=== PATIENT | male | born 1990 | race Caucasian/White ===

== ENCOUNTER 2023-01-20 12:10 | Outpatient (REF) | payer OTHER, SELFPAY ==
--- NOTE | ~2023-01-20 | XR_ITS ---
EXAMINATION: XR ABDOMEN KUB CLINICAL INDICATION: Constipation. COMPARISON: None available. TECHNIQUE: AP view of the abdomen. FINDINGS: Nonobstructive bowel gas pattern. Large amount of stool in the rectum, rectal vault measures approximately 7 cm in diameter. The included lung bases are clear. No acute osseous abnormalities. XR/XR KUB IMPRESSION: 1. Nonobstructive bowel gas pattern. 2. Large amount of stool in the rectum.
== END 2023-01-20 12:11 | disposition home or self-care (01) ==
LOC: HO.XRAY 12:10
DX: R10.9 Unspecified abdominal pain (principal); K59.00 Constipation, unspecified; R63.8 Other symptoms and signs concerning food and fluid intake
CPT/HCPCS: 74018

== ENCOUNTER 2023-02-15 08:22 | Emergency (ER) | payer OTHER, SELFPAY ==
[2023-02-15] VITALS (7 sets, daily range): BP systolic 127–149; BP diastolic 72–96; PULSE 86–200; RESP 14–22; TEMP 36.4–37; O2SAT 99–100; BMI 23.7
--- NOTE | 2023-02-15 08:44 | ED.CHESTPAIN ---
HPI - Chest Pain General Chief Complaint: Chest Pain Stated Complaint: CP PER EMS Time Seen by Provider: 02/15/23 08:27 Source: patient and EMS Mode of arrival: EMS Limitations: no limitations History of Present Illness HPI narrative: Dizziness, anxiety, high heart rate. patient has had prior alcohol withdrawal. Patient has had alcohol withdrawal in the past. Patients last drink was yesterday at 7pm. Patient was not offered a program in the past. Symptoms started while driving. Patient has had panic attacks in the past. Patient denies knowing what he is axious about. Onset (ago): minute(s) Timing of current episode: constant Prior episodes: Yes Onset: other (while driving) Related Data Previous Rx's Medication Instructions Recorded polyethylene glycol 3350 17 gram 17 g PO DAILY 7 days #7 ea 01/20/23 oral powder packet (Miralax) atenolol 50 mg tablet 50 mg PO DAILY #30 tabs 02/15/23 Allergies Allergy/AdvReac Type Severity Reaction Status Date / Time No Known Allergies Allergy Verified 01/20/23 10:53 Review of Systems Review of Systems: Yes all other systems are reviewed and are negative Constitutional: Comments: anxiety, dizziness, fast heart rate Neurologic: Denies Sensory deficit (Neuro) [facility] Past Medical History Medical History No pertinent past medical history Surgical History No pertinent past surgical history Social History Social History Household Members: Family Housing: Condominium Alcohol intake: current Alcohol intake frequency: a few times a week Alcohol type: beer Patient Tobacco Use Status: Never used Tobacco Smoked in Last 30 Days: No Use of substances other than those prescribed or required for medical reasons: Yes Substance Use Type: Marijuana Substance Use Frequency: Occasionally Advance Directives: No Advance Directives Information Provided: No Physical Exam Vital Signs: Vital Signs: Last Vital Signs Temp 98.1 F 02/15/23 11:51 Pulse 91 02/15/23 12:10 Resp 16 02/15/23 12:10 BP 127/74 02/15/23 12:10 Pulse Ox 100 02/15/23 12:10 O2 Del Method Room Air 02/15/23 12:10 BMI result Body Mass Index 23.7 Const: Other: anxious, shakey Nutritional Appearance: average body habitus Orientation/consciousness: oriented to person and patient oriented x3 Limitations: no limitations HEENT: Head: Yes normal to inspection Ears: external ears normal General nose exam: Normal external nose present Mouth: Normal oral and palatal mucosa present and oropharynx normal Throat: Yes posterior oropharynx normal Eyes: General: appearance normal, both eyes and all related structures Neck: Other: supple Neck: Yes normal visual inspection Chest: Chest palpation & inspection: normal inspection of the chest Resp: Auscultation: clear to auscultation bilaterally Cardio: Jugular venous distension: no JVD Rate: regular rate Rhythm: regular rhythm Heart sounds: S1 normal heart sound present and S2 normal heart sound present GI: Inspection: Yes normal to inspection Palpation (GI): Soft to palpation, nontender and No hepatosplenomegaly present Auscultation: normal bowel sounds : General: Yes no CVA tenderness Back/Spine/Pelvis: Back: no CVA tenderness Skin: General skin exam: no rashes or lesions noted Neuro: General: oriented to person and patient oriented x3 Cranial nerves: Yes CN's II-XII intact bilaterally Motor exam (neuro): 5/5 motor strength present throughout Sensory Exam: No Sensory deficit (Neuro) Extrem: General: Yes normal to inspection Psych: Appearance: grossly normal Course Reevaluation(s) Reevaluation #1: patient with an episode of SVT up to 225, then down to 180, gave adenosine which gave him a pause and then reset him to 120. betablocker given. Talked with Dr. Diaz who thinks reentrant tachycardia Time: 12:35 Reevaluation #2: I spent 40 minutes of critical care, with interventions, assessments, speaking to patient, consultants, and family. Time: 12:35 Medications Administered Discontinued Medications Generic Name Dose Route Start Last Admin Trade Name Freq PRN Reason Stop Dose Admin Adenosine 6 mg 02/15/23 11:37 02/15/23 10:55 Adenosine 6 Mg/2 Ml Vial IVPUSH 02/15/23 11:38 6 mg STAT STA Administration Atenolol 25 mg 02/15/23 11:38 02/15/23 12:08 Atenolol 25 Mg Tablet PO 02/15/23 11:39 25 mg ONCE ONE Administration Protocol Sodium Chloride 1,000 mls @ 999 mls/hr 02/15/23 09:00 02/15/23 12:14 Ns IVCONT 02/15/23 11:00 Infused .Q1H1M FRANCK Infusion Metoprolol Tartrate 5 mg 02/15/23 10:57 02/15/23 11:09 Metoprolol Tartrate 5 Mg/5 Ml Vial IVPUSH 02/15/23 10:58 5 mg ONCE ONE Administration Phenobarbital Sodium 65 mg 02/15/23 08:50 02/15/23 09:15 Phenobarbital Sodium 65 Mg/Ml Vial IVPUSH 02/15/23 08:51 65 mg ONCE ONE Administration Medical Decision Making Differential Diagnosis Differential Diagnoses: The differential diagnosis associated with the presentation includes (alcohol withdrawal, anxiety, SVT) Admission/Observation Consideration of admission/observation: Escalation of care including admission/observation considered (when patient had a rate of 225 and required intervention, admission was considered) Consult Healthcare Provider Management of the patient was discussed with: Pound Keeper (Discussed with Dr. Diaz of ICU) Lab Data MDM Lab Attestation statement: I reviewed the patient's lab results. 02/15/23 09:33 02/15/23 09:33 Labs: Lab Results 02/15/23 02/15/23 02/15/23 Range/Units 09:33 09:33 10:50 WBC 10.1 (4.8-10.8) X10*3/uL RBC 5.36 (4.60-5.80) X10*6/uL Hgb 15.4 (14.0-18.0) g/dl Hct 46.9 (42.0-52.0) % MCV 87.5 (80.0-98.0) fL MCH 28.7 (27.0-33.0) pg MCHC 32.8 (31.0-36.0) g/dl RDW 12.4 (11.0-16.0) % Plt Count 216 (160-400) X10*3/uL MPV 9.2 L (9.4-12.4) fL Immature Gran % (Auto) 1.2 H (0.0-0.4) % Neut % (Auto) 82.5 H (45-73) % Lymph % (Auto) 10.3 L (20-40) % [place] % (Auto) 4.6 (2-11) % Eos % (Auto) 1.1 (0-4) % Baso % (Auto) 0.3 (0-2) % Lymph # (Auto) 1.0 L (1.2-4.9) X10*3/uL [place] # (Auto) 0.5 (0.1-1.2) X10*3/uL Eos # (Auto) 0.1 (0.0-0.4) X10*3/uL Baso # (Auto) 0.0 (0.0-0.2) X10*3/uL Abs Immat Gran (auto) 0.12 H (0.00-0.03) X10*3/uL Absolute Neuts (auto) 8.3 (2.0-8.3) x10*3/uL Absolute Nucleated RBC 0.000 (0.0-0.012) X10*3/uL Nucleated RBC % (auto) 0.0 (0.0-0.2) /100WBC Sodium 140 (135-145) mmol/L Potassium 3.9 (3.3-5.1) mmol/L Chloride 106 (96-108) mmol/L Carbon Dioxide 27 (22-29) mmol/L Anion Gap 11 L (12-20) BUN 17 H (9-16) mg/dL Creatinine 0.84 (0.5-1.4) mg/dL Estim Creat Clear Calc 141.1 Estimated GFR > 60 Random Glucose 119 H (60-115) mg/dL Calcium 8.9 (8.4-10.2) mg/dL Total Bilirubin 0.6 (0.0-1.0) mg/dL AST 14 (5-37) U/L ALT 11 (0-40) U/L Alkaline Phosphatase 55 (39-117) U/L Total Protein 6.8 (6.5-8.0) g/dL Albumin 4.4 (3.5-5.0) g/dL Urine Opiates Screen Not Detected (Not Detect) Urine Fentanyl Screen Not Detected (Not Detect) Ur Barbiturates Screen POSITIVE H (Not Detect) Ur Phencyclidine Scrn Not Detected (Not Detect) Ur Amphetamines Screen Not Detected (Not Detect) U Benzodiazepines Scrn Not Detected (Not Detect) Urine Cocaine Screen Not Detected (Not Detect) U Marijuana (THC) Screen POSITIVE H (Not Detect) Ethyl Alcohol < 10 mg/dL Independent Interpretation I performed an independent interpretation of an: EKG (SVT rate 180. Sinus [address] or twave changes) and Rhythm Strip (SVT) Independent Historian Clinical information obtained from an independent historian. History obtained from or confirmed by: EMS Social Determinants Patient?s care significantly limited by Social Determinants of Health including: Alcoholism and drug addiction in family Discharge Plan Discharge Clinical Impression: Paroxysmal supraventricular tachycardia, Alcohol abuse, Drug abuse Patient Disposition: Home, Self-Care Instructions: Supraventricular Tachycardia (ED) Additional Instructions: must avoid drugs and alcohol Prescriptions: New atenolol 50 mg tablet 50 mg PO DAILY Qty: 30 0RF No Action polyethylene glycol 3350 [Miralax] 17 gram powder in packet 17 g PO DAILY 7 Days Qty: 7 0RF Referrals: Tolu Alcantara MD [Primary Care Provider] - 5 days
[2023-02-15] MEDS: 0.9 % Sodium Chloride 1,000 ML 999 ML IVCONT ×2 (08:56→11:09)
--- OUTSIDE RECORDS SUMMARY | 2023-02-15 09:01 | XMS_ITS | Continuity of Care Document ---
Author Name Unknown Organization [facility] ter Address [address] [place] [id number]- Care Team Providers Care Driver'S License Examiner Name Role Phone Huber DOTSON, Keith Hearn Primary Care Physician Encounter [facility] Date(s): 07/22/22 - 07/22/[address] [address]- Discharge Disposition: A-D/C Home Attending Physician: Tony Orourke MD Admitting Physician: Karen Melgar MD Referring Physician: Not on Staff, Referring MD Allergies, Adverse Reactions, Alerts No Known Medication Allergies Medications folic acid 1 mg oral tablet 1 mg, 1, tablet, By Mouth, Daily, # 30 tablet, Refills 0, Tot. Refills 0, Maintenance, 07/22/22 14:14:00 EDT, Route to Pharmacy Electronically, [id number], Partial fill upon patient request if the prescription is for a schedule II opioid drug.... Start Date: 07/22/22 Status: Ordered MiraLax oral powder for reconstitution = 17 Gm, By Mouth, Daily, dissolve in water before taking, # 255 Gm, 0 Refills, Acute 07/23/22 14:15:00 EDT, 07/22/22 14:15:00 EDT, REC Powder, [id number], Partial fill upon patient request if the prescription is for a schedule II opioid drug.... Start Date: 07/22/22 Stop Date: 07/23/22 Status: Ordered thiamine 100 mg oral tablet 100 mg, 1, tablet, By Mouth, Daily, # 30 tablet, Refills 0, Tot. Refills 0, Acute 07/23/22 14:15:00EDT, 07/22/22 14:14:00 EDT, Route to Pharmacy Electronically, [id number], Partial fill uponpatient request if the prescription is for a schedu... Start Date: 07/22/22 Stop Date: 07/23/22 Status: Ordered Vital Signs Most recent to oldest [Reference Range]: 1 2 3 Height 180 cm (07/22/22 7:22 AM) 180 cm (07/22/22 3:12 AM) 180 cm (07/21/22 8:51 PM) Weight 83.6 kg (07/22/22 7:22 AM) 83.6 kg (07/22/22 3:12 AM) 83.6 kg (07/21/22 8:51 PM) Oxygen Saturation [94-100 %] 100 % (07/22/22 2:35 PM) 99 % (07/22/22 1:22 PM) 98 % (07/22/22 7: AM) Pulse Rate [55-90 bpm] 74 bpm (07/22/22 2:35 PM) 82 bpm (07/22/22 1:22 PM) 95 bpm *H* (07/22/22 7:22 AM) Body Mass Index [18.5-24.99] 25.8 *H* (07/22/22 7:22 AM) 25.8 *H* (07/22/22 3:12 AM) Blood Pressure [90-138/55-84 mm Hg] 132/79mm Hg (07/22/22 2:35 PM) 123/73mm Hg (07/22/22 1:22 PM) 141/81mm Hg *H* (07/22/22 7:22 AM) Respiratory Rate [16-30 br/min] 18 br/min (07/22/22 2:35 PM) 19 br/min (07/22/22 1:22 PM) 16 br/min (07/22/22 7:22 AM) Temperature [96.8-100.4 DegF] 98.7 DegF (07/22/22 12:31 AM) 98.4 DegF (07/21/22 11:01 PM) 97.8 DegF (07/21/22 8:51 PM) Mode of Delivery (Oxygen) Room air (07/22/22 2:35 PM) Room air (07/22/22 1:22 PM) Room air (07/22/22 7:22 AM) Blood pressure sites Arm, left (9/14/22 2:35 PM) Arm, left (07/22/22 1:22 PM) Arm, left (07/22/22 7:22 AM) Temperature Route Oral (07/22/22 12:31 AM) Oral (07/21/22 11:01 PM) Oral (07/21/22 8:51 PM) Weight Obtained Via Patient/family state d (07/21/22 8:51 PM) Care Team Personnel Name: Keith Ngo MD Address: [address] [place] [address] [facility] [place], [place] [id number]
[2023-02-15] MEDS: PHENobarbitaL sodium 65 MG/ML VIAL IVPUSH (09:15)
[2023-02-15 09:37] LABS: MANUAL DIFF FLAG NO
[2023-02-15 09:40] LABS: Basophils Percent Auto 0.3 % (0-2); Eosinophils Absolute Auto 0.1 X10*3/uL (0.0-0.4); Eosinophils Percent Auto 1.1 % (0-4); Hematocrit 46.9 % (42.0-52.0); Hemoglobin 15.4 g/dl (14.0-18.0); Imm Gran Abs Auto 0.12 X10*3/uL (0.00-0.03); Imm Gran Pct Auto 1.2 % (0.0-0.4); Lymphocytes Percent Auto 10.3 % (20-40); Mean Corpuscular HGB Conc 32.8 g/dl (31.0-36.0); Mean Corpuscular Hemoglobin 28.7 pg (27.0-33.0); Mean Corpuscular Volume 87.5 fL (80.0-98.0); Mean Platelet Volume 9.2 fL (9.4-12.4); Monocytes Absolute Auto 0.5 X10*3/uL (0.1-1.2); Monocytes Percent Auto 4.6 % (2-11); Neutrophils Absolute Auto 8.3 x10*3/uL (2.0-8.3); Neutrophils Percent Auto 82.5 % (45-73); Platelet Count 216 X10*3/uL (160-400); Red Blood Count 5.36 X10*6/uL (4.60-5.80); Red Cell Distribution Width 12.4 % (11.0-16.0); White Blood Count 10.1 X10*3/uL (4.8-10.8)
[2023-02-15 09:55] LABS: Alanine Aminotransferase 11 U/L (0-40); Albumin Level 4.4 g/dL (3.5-5.0); Alkaline Phosphatase 55 U/L (39-117); Anion Gap 11 (12-20); Aspartate Amino Transferase 14 U/L (5-37); Bilirubin Total 0.6 mg/dL (0.0-1.0); Blood Urea Nitrogen 17 mg/dL (9-16); Calcium 8.9 mg/dL (8.4-10.2); Carbon Dioxide 27 mmol/L (22-29); Chloride 106 mmol/L (96-108); Creatinine Clr Calc Pharmacy 141.1; Estimated Glomerular Filt Rate > 60; Ethanol < 10 mg/dL; Glucose Random 119 mg/dL (60-115); Potassium 3.9 mmol/L (3.3-5.1); Sodium 140 mmol/L (135-145); Total Protein 6.8 g/dL (6.5-8.0)
--- NOTE | 2023-02-15 10:15 | PC.NURSE ---
assumed care of this pt at 0830 when pt was BIBA from work. pt appeared to be anxious, tachycardic, with elevated BP as documented. EMS inserted IV prior to pt's arrival, however IV access leaking so new IV placed in pt's RAC. fluids running currently and pt medicated per jan. pt now stating relief from medication, not as anxious, and chest pain gone. pt calm and cooperative, currently resting quietly watching tv. wctm.
[2023-02-15] MEDS: Adenosine 6 MG/2 ML VIAL IVPUSH (10:55)
[2023-02-15 11:07] LABS: Amphetamine Screen Urine Not Detected (Not Detect); Barbiturates, Urine POSITIVE (Not Detect); Benzodiazepines Screen Urine Not Detected (Not Detect); Cannabinoid Screen Urine POSITIVE (Not Detect); Cocaine Screen Urine Not Detected (Not Detect); Fentanyl, urine Not Detected (Not Detect); Opiate Screen Urine Not Detected (Not Detect); Phencyclidine Screen Urine Not Detected (Not Detect)
[2023-02-15] MEDS: Metoprolol Tartrate 5 MG/5 ML VIAL IVPUSH (11:09)
--- NOTE | 2023-02-15 11:22 | PC.NURSE ---
attended to pt per junior legal secretary alerting JADEN cotter about pt heart rate 225 bpm. this RN, cyndee hutchison, and dr. chairez, miguel a, and brad all attended to pt, as pt appeared to be in SVT. pt medicated per jan, and EKGs obtained. HR appeared to be going down to 130s, medicated again per jan. pt denies chest pain/sob and is resting quietly in room. HR ranging from 98-104 bpm [place]. wctm
[2023-02-15] MEDS: atenoloL 25 MG TABLET PO (12:08)
--- NOTE | 2023-02-15 14:48 | ECG_ITS ---
Test Reason : POST MED Blood Pressure : / mmHG Vent. Rate : 099 BPM Atrial Rate : 099 BPM P-R Int : 158 ms QRS Dur : 092 ms QT Int : 344 ms P-R-T Axes : 062 051 043 degrees QTc Int : 441 ms Normal sinus rhythm Normal ECG No previous ECGs available Referred By: Vitaly Love Electronically Signed By:PREETI MARTINEZ MD
== END 2023-02-15 13:07 | disposition home or self-care (01) ==
PROVIDERS: Emergency Provider Emergency Medicine; PCP Family Medicine
DX: R07.89 Other chest pain (principal); I47.9 Paroxysmal tachycardia, unspecified; F12.10 Cannabis abuse, uncomplicated; F10.10 Alcohol abuse, uncomplicated; Y90.0 Blood alcohol level of less than 20 mg/100 ml; Z79.899 Other long term (current) drug therapy
CPT/HCPCS: 36415; 80053; 80307; 82077; 85025; 93005; 96361; 96374; 96375; 99285; J0153; J2560

== ENCOUNTER 2024-02-28 05:26 | Emergency (ER) | payer OTHER, SELFPAY ==
--- NOTE | ~2024-02-28 | XR_ITS ---
EXAMINATION: XR ABDOMEN KUB CLINICAL INDICATION: Abdominal pain with history of constipation COMPARISON: 01/20/2023 TECHNIQUE: AP view of the abdomen. FINDINGS: The bowel gas pattern is normal with no evidence of ileus or obstruction. Moderate stool is present in the colon. No unusual soft tissue calcifications are noted. The bones are unremarkable. XR/XR KUB IMPRESSION: Moderate stool burden. No evidence of bowel obstruction.
[2024-02-28 05:31] VITALS: BP 170/98; PULSE 136; RESP 16; TEMP 36.9; O2SAT 100; BMI 23.0
[2024-02-28 06:10] LABS: MANUAL DIFF FLAG NO
[2024-02-28 06:26] LABS: Alanine Aminotransferase 16 U/L (0-40); Albumin Level 4.5 g/dL (3.5-5.0); Alkaline Phosphatase 50 U/L (39-117); Anion Gap 12 (12-20); Aspartate Amino Transferase 17 U/L (5-37); Basophils Percent Auto 0.5 % (0-2); Bilirubin Direct 0.3 mg/dL (0.0-0.5); Bilirubin Total 0.9 mg/dL (0.0-1.0); Blood Urea Nitrogen 17 mg/dL (9-16); Calcium 9.4 mg/dL (8.4-10.2); Carbon Dioxide 29 mmol/L (22-29); Chloride 103 mmol/L (96-108); Creatinine Clr Calc Pharmacy 141.2; Eosinophils Absolute Auto 0.1 X10*3/uL (0.0-0.4); Eosinophils Percent Auto 1.2 % (0-4); Estimated Glomerular Filt Rate > 60; Ethanol < 10 mg/dL; Glucose Random 107 mg/dL (60-115); Hematocrit 47.2 % (42.0-52.0); Hemoglobin 15.6 g/dl (14.0-18.0); Imm Gran Abs Auto 0.02 X10*3/uL (0.00-0.03); Imm Gran Pct Auto 0.3 % (0.0-0.4); Lipase 25 U/L (8-78); Lymphocytes Absolute Auto 1.8 X10*3/uL (1.2-4.9); Lymphocytes Percent Auto 31.8 % (20-40); Mean Corpuscular HGB Conc 33.1 g/dl (31.0-36.0); Mean Corpuscular Hemoglobin 29.6 pg (27.0-33.0); Mean Corpuscular Volume 89.6 fL (80.0-98.0); Monocytes Absolute Auto 0.4 X10*3/uL (0.1-1.2); Neutrophils Absolute Auto 3.5 x10*3/uL (2.0-8.3); Neutrophils Percent Auto 60.2 % (45-73); Platelet Count 296 X10*3/uL (160-400); Potassium 3.6 mmol/L (3.3-5.1); Red Blood Count 5.27 X10*6/uL (4.60-5.80); Red Cell Distribution Width 12.5 % (11.0-16.0); Sodium 140 mmol/L (135-145); Total Protein 7.5 g/dL (6.5-8.0); White Blood Count 5.8 X10*3/uL (4.8-10.8)
[2024-02-28 06:58] VITALS: BP 127/93; PULSE 103; RESP 16; TEMP 36.6; O2SAT 100
--- NOTE | 2024-02-28 07:10 | ED_ITS ---
HPI - Abdominal Pain General Chief Complaint: Abdominal Pain Stated Complaint: stomach pain Time Seen by Provider: 02/28/24 07:01 Source: patient and old records reviewed Mode of arrival: ambulatory Limitations: no limitations History of Present Illness HPI narrative: 33 yo male with PMH of anxiety and constipation reports 1.5 weeks of lower abdominal pain and worsening anxiety/SI after starting atarax he notes poor appetite and worse symptoms. He has no SI plan. He notes he cannot eat due to the symptoms. He denies n/v/d constipation symptoms. He thinks his mental health is causing his stomach pains. He states his symptoms started the minute he took that pill MD elicited complaint: abdominal pain (anxiety, SI) Pertinent past history: constipation Onset (ago): day(s) (10) Pain Consistency: intermittent Location: periumbilical Severity: moderate Quality: aching Radiation: none Migration to: no migration Exacerbating factors: eating, medication and other (stress) Relieving factors: nothing Context: history of similar episodes Associated symptoms: other (anxiety, SI) Related Data Previous Rx's ?Medication ?Instructions ?Recorded polyethylene glycol 3350 17 gram 17 g PO DAILY 7 days #7 ea 01/20/23 oral powder packet (Miralax) atenolol 50 mg tablet 50 mg PO DAILY #30 tabs 02/15/23 Allergies Allergy/AdvReac Type Severity Reaction Status Date / Time No Known Allergies Allergy Verified 02/28/24 05:35 Review of Systems Review of Systems Constitutional : No Weight loss, No Fever, No Chills ENT/Mouth : No sore throat, No Rhinorrhea Eyes: No Swelling, No Redness Cardiovascular : No Chest Pain, No SOB, NoEdema Respiratory : No Cough, No Sputum, No Wheezing Gastrointestinal : no Nausea, no Vomiting, noDiarrhea, positive abdominal Pain, No Hematochezia, No Melena Genitourinary : No Dysuria, No Urinary Frequency, No Hematuria, No Urgency Musculoskeletal : No joint pain, No Myalgias, No Joint Swelling Skin : No Skin Lesions, No rash Neuro : No Weakness, No Numbness, No Dizziness, No Headache Psych : pos Anxiety/Panic, pos Depression, pos SI Heme/Lymph: No Bruising, No Lymphadenopathy Endocrine : No Polyuria, No Polydipsia All other systems reviewed and are negative. [facility] Past Medical History Attestation statement: The following information was validated with the patient. Source: old records reviewed Medical History No pertinent past medical history Surgical History No pertinent past surgical history Social History Social History Household Members: Family Housing: Condominium Alcohol intake: current Alcohol intake frequency: a few times a week Alcohol type: beer Patient Tobacco Use Status: Never used Tobacco Use of substances other than those prescribed or required for medical reasons: Yes Substance Use Type: Marijuana Advance Directives: No Advance Directives Information Provided: No Physical Exam ED Vital Signs: Vital Signs - 24 hr 02/28/24 05:31 02/28/24 06:58 Temperature 98.4 F 97.8 F Pulse Rate 136 H 103 H Respiratory Rate 16 16 Blood Pressure 170/98 H 127/93 H Pulse Oximetry 100 100 Oxygen Delivery Method Room Air Room Air BMI result Body Mass Index 23.0 Appearance: Alert. Oriented X3. No acute distress. Eyes: Pupils equal, round and reactive to light. ENT: Pharynx normal. Neck: Normal inspection. Neck supple. CVS: Normal heart rate and rhythm. Pulses normal. Respiratory: No respiratory distress. Breath sounds normal. Abdomen: Soft and very mild suprapubic ttp no rebound Skin: Skin warm and dry. Normal skin color. Normal skin turgor. Extremities: No lower extremity edema. No calf ttp Neuro: Oriented X 3. No motor deficit. No sensory deficit. CN2-12 intact Course Course Course Narrative: CRP and WBC count negative with 10 days of symptoms doubt appendicitis or infection Medical Decision Making Medical Decision Making [facility] Narrative: 33 yo male with anxiety and depression that he states is making his SI and anxiety worse after starting atarax at this time symptoms x 10 days with normal CBC and denies any associated GI or symptoms will obtain basic labs, UA, CRP, KUB if negative will refer to CARE team. Differential Diagnosis Differential Diagnoses: The differential diagnosis associated with the presentation includes anxiety, constipation Admission/Observation Consideration of admission/observation: Escalation of care including admission/observation considered physician observation started at 746am pending CARE team Consult Healthcare Provider Management of the patient was discussed with: Behavioral Health Provider Lab Data [facility] Lab Attestation statement: I reviewed the patient's lab results. 02/28/24 06:06 02/28/24 06:06 Labs: Lab Results 02/28/24 02/28/24 02/28/24 Range/Units 06:06 08:15 08:18 WBC 5.8 (4.8-10.8) X10*3/uL RBC 5.27 (4.60-5.80) X10*6/uL Hgb 15.6 (14.0-18.0) g/dl Hct 47.2 (42.0-52.0) % MCV 89.6 (80.0-98.0) fL MCH 29.6 (27.0-33.0) pg MCHC 33.1 (31.0-36.0) g/dl RDW 12.5 (11.0-16.0) % Plt Count 296 D (160-400) X10*3/uL MPV 9.0 L (9.4-12.4) fL Immature Gran % (Auto) 0.3 (0.0-0.4) % Neut % (Auto) 60.2 (45-73) % Lymph % (Auto) 31.8 (20-40) % [place] % (Auto) 6.0 (2-11) % Eos % (Auto) 1.2 (0-4) % Baso % (Auto) 0.5 (0-2) % Lymph # (Auto) 1.8 (1.2-4.9) X10*3/uL [place] # (Auto) 0.4 (0.1-1.2) X10*3/uL Eos # (Auto) 0.1 (0.0-0.4) X10*3/uL Baso # (Auto) 0.0 (0.0-0.2) X10*3/uL Abs Immat Gran (auto) 0.02 (0.00-0.03) X10*3/uL Absolute Neuts (auto) 3.5 (2.0-8.3) x10*3/uL Absolute Nucleated RBC 0.000 (0.0-0.012) X10*3/uL Nucleated RBC % (auto) 0.0 (0.0-0.2) /100WBC Sodium 140 (135-145) mmol/L Potassium 3.6 (3.3-5.1) mmol/L Chloride 103 (96-108) mmol/L Carbon Dioxide 29 (22-29) mmol/L Anion Gap 12 (12-20) BUN 17 H (9-16) mg/dL Creatinine 0.78 (0.5-1.4) mg/dL Estim Creat Clear Calc 141.2 Estimated GFR > 60 Random Glucose 107 (60-115) mg/dL Calcium 9.4 (8.4-10.2) mg/dL Total Bilirubin 0.9 (0.0-1.0) mg/dL Direct Bilirubin 0.3 (0.0-0.5) mg/dL AST 17 (5-37) U/L ALT 16 (0-40) U/L Alkaline Phosphatase 50 (39-117) U/L C-Reactive Protein < 0.04 (< or = 0.50) mg/dL Total Protein 7.5 (6.5-8.0) g/dL Albumin 4.5 (3.5-5.0) g/dL Lipase 25 (8-78) U/L Urine Color Yellow Urine Appearance Clear Urine pH >= 9.0 (5.0-9.0) Ur Specific [place] 1.015 (1.005-1.025) Urine Protein Negative (Neg-Trace) mg/dL Urine Glucose (UA) Negative (Negative) mg/dL Urine Ketones Negative (Negative) mg/dL Urine Blood Negative (Negative) Urine Nitrite Negative (Negative) Ur Leukocyte Esterase Negative (Negative) Urine Opiates Screen (Not Detect) Ur Buprenorphine Scrn (Not Detect) ng/mL Ur Oxycodone Screen (Not Detect) ng/mL Urine Methadone Screen (Not Detect) ng/mL Urine Fentanyl Screen (Not Detect) Ur Barbiturates Screen (Not Detect) Ur Phencyclidine Scrn (Not Detect) Ur Amphetamines Screen (Not Detect) U Benzodiazepines Scrn (Not Detect) Urine Cocaine Screen (Not Detect) U Marijuana (THC) Screen (Not Detect) Ethyl Alcohol < 10 mg/dL Influenza Type A (PCR) NEGATIVE (Negative) Influenza Type B (PCR) NEGATIVE (Negative) RSV RNA Qual (PCR) NEGATIVE (Negative) SARS-CoV-2 RNA (RT-PCR) NEGATIVE (Negative) 02/28/24 Range/Units 11:52 WBC (4.8-10.8) X10*3/uL RBC (4.60-5.80) X10*6/uL Hgb (14.0-18.0) g/dl Hct (42.0-52.0) % MCV (80.0-98.0) fL MCH (27.0-33.0) pg MCHC (31.0-36.0) g/dl RDW (11.0-16.0) % Plt Count (160-400) X10*3/uL MPV (9.4-12.4) fL Immature Gran % (Auto) (0.0-0.4) % Neut % (Auto) (45-73) % Lymph % (Auto) (20-40) % [place] % (Auto) (2-11) % Eos % (Auto) (0-4) % Baso % (Auto) (0-2) % Lymph # (Auto) (1.2-4.9) X10*3/uL [place] # (Auto) (0.1-1.2) X10*3/uL Eos # (Auto) (0.0-0.4) X10*3/uL Baso # (Auto) (0.0-0.2) X10*3/uL Abs Immat Gran (auto) (0.00-0.03) X10*3/uL Absolute Neuts (auto) (2.0-8.3) x10*3/uL Absolute Nucleated RBC (0.0-0.012) X10*3/uL Nucleated RBC % (auto) (0.0-0.2) /100WBC Sodium (135-145) mmol/L Potassium (3.3-5.1) mmol/L Chloride (96-108) mmol/L Carbon Dioxide (22-29) mmol/L Anion Gap (12-20) BUN (9-16) mg/dL Creatinine (0.5-1.4) mg/dL Estim Creat Clear Calc Estimated GFR Random Glucose (60-115) mg/dL Calcium (8.4-10.2) mg/dL Total Bilirubin (0.0-1.0) mg/dL Direct Bilirubin (0.0-0.5) mg/dL AST (5-37) U/L ALT (0-40) U/L Alkaline Phosphatase (39-117) U/L C-Reactive Protein (< or = 0.50) mg/dL Total Protein (6.5-8.0) g/dL Albumin (3.5-5.0) g/dL Lipase (8-78) U/L Urine Color Urine Appearance Urine pH (5.0-9.0) Ur Specific [place] (1.005-1.025) Urine Protein (Neg-Trace) mg/dL Urine Glucose (UA) (Negative) mg/dL Urine Ketones (Negative) mg/dL Urine Blood (Negative) Urine Nitrite (Negative) Ur Leukocyte Esterase (Negative) Urine Opiates Screen Not Detected (Not Detect) Ur Buprenorphine Scrn Not Detected (Not Detect) ng/mL Ur Oxycodone Screen Not Detected (Not Detect) ng/mL Urine Methadone Screen Not Detected (Not Detect) ng/mL Urine Fentanyl Screen Not Detected (Not Detect) Ur Barbiturates Screen Not Detected (Not Detect) Ur Phencyclidine Scrn Not Detected (Not Detect) Ur Amphetamines Screen Not Detected (Not Detect) U Benzodiazepines Scrn Not Detected (Not Detect) Urine Cocaine Screen Not Detected (Not Detect) U Marijuana (THC) Screen Not Detected (Not Detect) Ethyl Alcohol mg/dL Influenza Type A (PCR) (Negative) Influenza Type B (PCR) (Negative) RSV RNA Qual (PCR) (Negative) SARS-CoV-2 RNA (RT-PCR) (Negative) Independent Interpretation I performed an independent interpretation of an: Plain X-Ray Radiology Impression Discussion of test interpretation with radiology: I have reviewed the radiologist's reading. External Record Review External record reviewed: Inpatient record Discharge Plan Discharge Clinical Impression: Constipation, Anxiety Patient Disposition: Still a Patient Instructions: Anxiety (ED), Constipation (ED) Additional Instructions: return for worsening symptoms or concerns drink plenty of fluids eat a well balanced diet Prescriptions: No Action atenolol 50 mg tablet 50 mg PO DAILY Qty: 30 0RF polyethylene glycol 3350 [Miralax] 17 gram powder in packet 17 g PO DAILY 7 Days Qty: 7 0RF Print Language: Palestinian
[2024-02-28 08:44] LABS: C Reactive Protein < 0.04 mg/dL (< or = 0.50)
[2024-02-28 09:01] LABS: Influenza A PCR NEGATIVE (Negative); Influenza B PCR NEGATIVE (Negative); Resp Syncy Virus RNA Qual PCR NEGATIVE (Negative); SARS COV2 PCR INHOUSE NEGATIVE (Negative)
--- NOTE | 2024-02-28 10:31 | PC.NURSE ---
pt being interviewed by CARE team, states he does not drink daily,says once a week, no signs of withdrawl. alert, speech clear, sitter at bedside
--- NOTE | 2024-02-28 11:09 | MHC.CARE ---
Patient evaluated by the CARE Team, disposition determined to be [facility] bed search. ED provider, Dr. Davidson updated
[2024-02-28 12:18] LABS: Appearance Urine Clear; Color Urine Yellow; Glucose Urine UA Negative (Negative); Leukocyte Esterase Urine Negative (Negative); Nitrite Urine Negative (Negative); PH >= 9.0 (5.0-9.0); Specific Gravity - Urine 1.015 (1.005-1.025); Urine Blood Negative (Negative); Urine Ketones Negative (Negative); Urine Protein Negative (Neg-Trace)
[2024-02-28 12:27] LABS: Amphetamine Screen Urine Not Detected (Not Detect); Barbiturates, Urine Not Detected (Not Detect); Benzodiazepines Screen Urine Not Detected (Not Detect); Buprenorphine Scr Not Detected (Not Detect); Cannabinoid Screen Urine Not Detected (Not Detect); Cocaine Screen Urine Not Detected (Not Detect); Fentanyl, urine Not Detected (Not Detect); Methadone Screen, Urine Not Detected (Not Detect); Opiate Screen Urine Not Detected (Not Detect); Oxycodone Screen Urine Not Detected (Not Detect); Phencyclidine Screen Urine Not Detected (Not Detect)
--- NOTE | 2024-02-28 16:34 | P.CNPS_ITS ---
History of Present Illness Date of Service: 02/28/2024 Chief Complaint: stomach pain Sources of Information: patient interviewed, chart reviewed and crisis/core team assessment reviewed HPI Narrative: Mr. Crabtree is a 33 year-old male who self presented to [facility] [place] [place] ED due to increase anxious mood and depression. He adamantly denied SI/HI. No signs of psychosis or delusions. He reports he was recently started on atarax. He reports increased constipation and abdominal pain. Collateral information from the mother who reports he recently learned his job will be ending and it was a perfect fit for him. No hx of psychosis or delusions. No hx of suicide attempts or self injurious behaviours. We discussed stopping atarax as it may worsen constipation and abdominal pain. No imminent concern, pt to follow up with outpatient providers. [facility] Medical History No pertinent past medical history Surgical History No pertinent past surgical history Diagnostics Vital Signs (24Hr): Vital Signs - 24 hr 02/28/24 05:31 02/28/24 06:58 Temperature 98.4 F 97.8 F Pulse Rate 136 H 103 H Respiratory Rate 16 16 Blood Pressure 170/98 H 127/93 H Pulse Oximetry 100 100 Oxygen Delivery Method Room Air Room Air BMI result Body Mass Index 23.0 Labs 02/28/24 06:06 02/28/24 06:06 Labs: Laboratory Results - last 48 hr 02/28/24 02/28/24 02/28/24 06:06 08:15 08:18 WBC 5.8 RBC 5.27 Hgb 15.6 Hct 47.2 MCV 89.6 MCH 29.6 MCHC 33.1 RDW 12.5 Plt Count 296 D MPV 9.0 L Immature Gran % (Auto) 0.3 Neut % (Auto) 60.2 Lymph % (Auto) 31.8 [place] % (Auto) 6.0 Eos % (Auto) 1.2 Baso % (Auto) 0.5 Lymph # (Auto) 1.8 [place] # (Auto) 0.4 Eos # (Auto) 0.1 Baso # (Auto) 0.0 Abs Immat Gran (auto) 0.02 Absolute Neuts (auto) 3.5 Absolute Nucleated RBC 0.000 Nucleated RBC % (auto) 0.0 Sodium 140 Potassium 3.6 Chloride 103 Carbon Dioxide 29 Anion Gap 12 BUN 17 H Creatinine 0.78 Estim Creat Clear Calc 141.2 Estimated GFR > 60 Random Glucose 107 Calcium 9.4 Total Bilirubin 0.9 Direct Bilirubin 0.3 AST 17 ALT 16 Alkaline Phosphatase 50 C-Reactive Protein < 0.04 Total Protein 7.5 Albumin 4.5 Lipase 25 Urine Color Yellow Urine Appearance Clear Urine pH >= 9.0 Ur Specific [place] 1.015 Urine Protein Negative Urine Glucose (UA) Negative Urine Ketones Negative Urine Blood Negative Urine Nitrite Negative Ur Leukocyte Esterase Negative Urine Opiates Screen Ur Buprenorphine Scrn Ur Oxycodone Screen Urine Methadone Screen Urine Fentanyl Screen Ur Barbiturates Screen Ur Phencyclidine Scrn Ur Amphetamines Screen U Benzodiazepines Scrn Urine Cocaine Screen U Marijuana (THC) Screen Ethyl Alcohol < 10 Influenza Type A (PCR) NEGATIVE Influenza Type B (PCR) NEGATIVE RSV RNA Qual (PCR) NEGATIVE SARS-CoV-2 RNA (RT-PCR) NEGATIVE 02/28/24 11:52 WBC RBC Hgb Hct MCV MCH MCHC RDW Plt Count MPV Immature Gran % (Auto) Neut % (Auto) Lymph % (Auto) [place] % (Auto) Eos % (Auto) Baso % (Auto) Lymph # (Auto) [place] # (Auto) Eos # (Auto) Baso # (Auto) Abs Immat Gran (auto) Absolute Neuts (auto) Absolute Nucleated RBC Nucleated RBC % (auto) Sodium Potassium Chloride Carbon Dioxide Anion Gap BUN Creatinine Estim Creat Clear Calc Estimated GFR Random Glucose Calcium Total Bilirubin Direct Bilirubin AST ALT Alkaline Phosphatase C-Reactive Protein Total Protein Albumin Lipase Urine Color Urine Appearance Urine pH Ur Specific [place] Urine Protein Urine Glucose (UA) Urine Ketones Urine Blood Urine Nitrite Ur Leukocyte Esterase Urine Opiates Screen Not Detected Ur Buprenorphine Scrn Not Detected Ur Oxycodone Screen Not Detected Urine Methadone Screen Not Detected Urine Fentanyl Screen Not Detected Ur Barbiturates Screen Not Detected Ur Phencyclidine Scrn Not Detected Ur Amphetamines Screen Not Detected U Benzodiazepines Scrn Not Detected Urine Cocaine Screen Not Detected U Marijuana (THC) Screen Not Detected Ethyl Alcohol Influenza Type A (PCR) Influenza Type B (PCR) RSV RNA Qual (PCR) SARS-CoV-2 RNA (RT-PCR) Imaging Radiology Impressions: ITS Impressions KUB X-Ray 02/28/24 08:04 IMPRESSION: Moderate stool burden. No evidence of bowel obstruction. Mental Status Exam Mental Status Exam Patient Appearance: Well Grooomed Patient Orientation: Person, Place, Time and Situation Level of Consciousness: Appropriate Patient Behavior: Appropriate Mood Description: Calm Affect Description: Calm Speech Pattern: Clear, Appropriate and Spontaneous Speech Hallucinations: None Delusions: Not Present Thought Process: Intact Medications Allergies Allergies Allergy/AdvReac Type Severity Reaction Status Date / Time No Known Allergies Allergy Verified 02/28/24 05:35 Assessment & Plan Assessment & Plan (1) DOMINICK (generalized anxiety disorder): Status: Acute Code(s): F41.1 - Generalized anxiety disorder Plan Mr. Crabtree is a 33 year-old male who self presented to [facility] [place] [place] ED reporting increase anxious mood. No SI/HI. he recently started on atarax and reports increased constipation, minimal benefit in terms of treating or decreasing symptoms of anxiety. He recently leared his job is ending. He adamantly denied SI/HI. No psychosis or delusions. No safety concerns. Recommend to stop atarax. follow up with outpatient providers. Total time managing care of this patient today ____ minutes.
[2024-02-28 16:36] VITALS: BP 138/88; PULSE 115; RESP 16; TEMP 36.9; O2SAT 96
--- NOTE | 2024-02-28 16:38 | MHC.CARE ---
[facility] referral completed, there are not openings at [facility] today, patient can wait here but prefers to go home. CARE Team will represent to [facility] tomorrow morning and communicate with patient.
--- NOTE | 2024-02-29 14:02 | MHC.CARE ---
Patient re-referred to [facility] today, they have no openings. [facility] in [place] has a bed tomorrow and would accept patient. Call to patient for check-in and update. He said he is feeling better, did not go to work again today, his employer told him to take his time and come back when he is ready. Patient is still interested in [facility] though does not want to travel to [place] and also declined offer for [facility] ([facility] services. Plans is to refer to [facility] again in the morning.
--- NOTE | 2024-03-01 16:48 | MHC.CARE ---
1030 (late entry) Call to [facility], they have beds today and asked that patient call himself, will likely need another evaluation Call to patient, he reported feeling less anxious today though still has stomach pain, which he now considers from emotions. Advised to call [facility], gave #, he agreed to plan
== END 2024-02-28 17:06 | disposition home or self-care (01) ==
PROVIDERS: Emergency Provider Emergency Medicine; PCP Internal Medicine
DX: K59.00 Constipation, unspecified (principal); F41.9 Anxiety disorder, unspecified
CPT/HCPCS: 0241U; 36415; 74018; 80048; 80076; 80307; 81003; 83690; 85025; 86140; 99284; 99285; S9485

== ENCOUNTER → 2024-02-28 06:07 | Outpatient (BNV) | payer OTHER, SELFPAY | PROVIDERS: Emergency Provider Emergency Medicine; PCP Internal Medicine; Visit Provider Social Worker | DX: F41.1 Generalized anxiety disorder (principal) | CPT/HCPCS: 99285 ==